=== PATIENT | male | born 1975 | race Caucasian/White ===

== ENCOUNTER → 2024-01-24 13:47 | Outpatient (REF) | payer BC, SELFPAY | LOC: DHCBC MAIN 13:47 | PROVIDERS: ATTENDING PHYSICIAN Internal Medicine Cardiovascular Disease; FAMILY PHYSICIAN Family Medicine | DX: R07.89 Other chest pain (principal); R03.0 Elevated blood-pressure reading, without diagnosis of hypertension | CPT/HCPCS: 93306 ==

== ENCOUNTER → 2024-05-29 10:44 | Outpatient (REF) | payer BC, SELFPAY | LOC: RAD 10:44 | PROVIDERS: ATTENDING PHYSICIAN Surgery; FAMILY PHYSICIAN Family Medicine | DX: N20.0 Calculus of kidney (principal) | CPT/HCPCS: 74018 ==

== ENCOUNTER 2025-06-29 19:47 | Emergency (ER) | payer BC, SELFPAY ==
[2025-06-29 19:58] VITALS: BP 158/95
[2025-06-29 20:18] VITALS: BMI 30.1
--- NOTE | 2025-06-29 20:40 | ED.MUSCINJ ---
HPI-Injury
General
Chief Complaint: Musculo-Skeletal Complaint
Source: patient and spouse
Exam Limitations: none
Time Seen by Provider: 06/29/25 20:40
Nursing documentation reviewed up to this point in time: agreed with
History of Present Illness-Injury
Initial Injury comments:
49-year-old male who comes from home after a left knee injury. He slipped on a wet floor and dislocated his patella 'it went sideways' and reduce it himself. He presents now with pain 10/10 in the knee with pain 'from my toe all the way up to my
hip.' Denies hitting head or any other injury
Past History
Past History
ED Past Medical History: Other (Kidney stones)
ED Past Surgical History: Other (Lipoma removal)
Social History
Tobacco: Non-smoker
Alcohol: Occasional
Drug: None
Personal:
Living: with family
Employment: Employed
Family History
Family History: Other (CHF)
Review of Systems
Review of Systems
Allergies reviewed?: Yes
All Other Systems: ROS reviewed and negative except as documented in HPI and ROS
Phy Exam
Physical Exam
Physical Exam:
GENERAL: No acute distress. A&Ox3.
CONSTITUTIONAL: Afebrile.
EYES: clear, conjunctivae normal
ENMT: moist mucus membranes, Pharynx nl
RESPIRATORY: Regular respirations, nonlabored, lungs clear.
CARDIOVASCULAR: Regular rate and rhythm, no murmurs, no rubs.
GI: Soft, nontender, normal BS
MUSCULOSKELETAL: Left lower extremity: Tender to palpate about the left knee, mild swelling, distal neurovascular intact. Will reevaluate after pain medication. Moves with ease. Well perfused.
SKIN: Warm, dry, pink
PSYCH: Normal mood and affect. Well kept, interactive and appropriate
NEUROLOGIC: Awake, alert and oriented. No focal neurological deficits
Injury Course
Orders/Labs/Results
Orders:
Orders
06/29/25 20:17
CR Knee - Left 4 Or More View* Urgent
Comment:
Reason For Exam: pain/fall
06/29/25 20:46
Knee Immobilizer Left-Treatmen ONCE
Ibuprofen [Motrin] 600 mg PO NOW STA
Oxycodone/Acetaminophen [Percocet 5/325] 1 tablet PO NOW STA
MDM/Problems Addressed
MDM/Problems Addressed:
49-year-old male who comes from home after a left knee injury. He slipped on a wet floor and dislocated his patella 'it went sideways' and reduce it himself. He presents now with pain 10/10 in the knee with pain 'from my toe all the way up to my
hip.' Denies hitting head or any other injury
Knee xray: Initally read by this examiner: mild suprapatellar effusion, otherwise neg.
*Pulse Oximetry
SaO2: 99
Oxygen Mode of Delivery: Room air
Patient hypoxic: not evaluated
*Critical Care Note
Total Time (30-74mins, 75-104mins- exclusive of procedures): Not Applicable
ED Attending Note
-
Portions of this chart may have been created with voice recognition software.� Occasional wrong word or��sound alike� substitutions may have occurred due to the inherent limitations of voice recognition software.
Discharge Plan
Departure
Patient Disposition: Home (Routine Discharge)
Date of Disposition: 06/29/25
Time of Disposition: 21:45
Patient with high blood pressure during this ER visit?: No
Condition: Good
Discharge Problem:
Fall from slip, trip, or stumble, Closed patellar dislocation, Groin strain
Instructions: Groin Strain (DC), Dislocated Kneecap (DC), Using Cold for Pain
Prescriptions:
New
tramadol 50 mg tablet
50 mg PO Q8H PRN (Reason: Pain) Qty: 6 0RF
No Action
betamethasone dipropionate 15 GM cream
15 gm TP TID Qty: 15 1RF
tramadol [Ultram] 50 MG tablet
50 mg PO Q4HPRN PRN (Reason: pain) Qty: 10 0RF
oxycodone-acetaminophen [Percocet] 5-325 mg Tablet
1 tab PO Q6HPRN PRN (Reason: pain) Qty: 12 0RF
tamsulosin [Flomax] 0.4 mg Capsule
0.4 mg PO DAILY Qty: 7 0RF
ondansetron 4 mg Tablet,Disintegrating
4 mg PO TIDPRN PRN (Reason: nausea/vomiting) Qty: 12 0RF
Referrals:
Teresita Mendez I., DO [Active, Orthopedics] - Call in 1-3 days for appt
UNKNOWN - PT DOES,NOT KNOW [Family Provider]
Activity Restrictions/Additional Instructions:
As we discussed, use the crutches with gradually increasing weightbearing as comfort permits.
Wear the knee immobilizer at all times when up and around.
Ibuprofen 600 mg, with food, every 6 hours as needed for pain.
Apply cold compress to the area 20 minutes off and on for the next 2 days is much as you can.
Interventions
Interventions:
*Risk Screen - Suicide Last Done: 06/29/25 19:58
*General Assessment Last Done: 06/29/25 20:18
*Neglect/Abuse Screening Last Done: 06/29/25 21:35
*ED- Fall Risk Assessment Last Done: 06/29/25 20:18
*ED COVID-19 Vaccine History Last Done: 06/29/25 20:18
*Nursing Disposition Last Done: 06/29/25 21:52
ED-Musculoskeletal Assessment Last Done: 06/29/25 20:20
Discharge Date and Time
Discharge Date/Time: 06/29/25 21:55
Print Language: BULGARIAN
[2025-06-29] MEDS: MOTRIN 600 MG PO (20:49)
[2025-06-29] MEDS: PERCOCET 5/325 1 TABLET PO (20:49)
[2025-06-29 21:52] VITALS: BP 150/90
== END 2025-06-29 21:55 | disposition home or self-care (01) ==
LOC: EMR 19:47
PROVIDERS: EMERGENCY PHYSICIAN Emergency Medicine
DX: S83.006A Unspecified dislocation of unspecified patella, initial encounter (principal); S39.011A Strain of muscle, fascia and tendon of abdomen, initial encounter; W01.0XXA Fall on same level from slipping, tripping and stumbling without subsequent striking against object, initial encounter; Z82.49 Family history of ischemic heart disease and other diseases of the circulatory system; Z87.442 Personal history of urinary calculi
CPT/HCPCS: 99283; 73564

== ENCOUNTER → 2025-07-10 18:08 | Outpatient (REF) | payer BC, SELFPAY | LOC: MRI 18:08 | PROVIDERS: ATTENDING PHYSICIAN Orthopaedic Surgery; FAMILY PHYSICIAN Family Medicine | DX: S89.92XA Unspecified injury of left lower leg, initial encounter (principal) | CPT/HCPCS: 73723; A9575 ==

== ENCOUNTER 2025-09-20 20:13 | Emergency (ER) | payer BC, SELFPAY ==
[2025-09-20 20:14] VITALS: BP 192/113
--- NOTE | 2025-09-20 20:36 | ED.GENMED ---
History of Present Illness
General
Chief Complaint: Dental Problem
Source: patient
Exam Limitations: none
Time Seen by Provider: 09/20/25 20:27
Nursing documentation reviewed up to this point in time: agreed with
History of Present Illness
History of Present Illness:
see MDM
Past History
Past History
ED Past Medical History: Other (Kidney stones)
ED Past Surgical History: Other (Lipoma removal)
Social History
Tobacco: Non-smoker
Alcohol: Occasional
Drug: None
Personal:
Living: with family
Employment: Employed
Family History
Family History: Other (CHF)
Phy Exam
Physical Exam
Physical Exam:
See MDM
Course
Orders/Labs/Results
Orders:
Orders
09/20/25 20:34
Ibuprofen [Motrin] 600 mg PO NOW STA
Oxycodone/Acetaminophen [Percocet 5/325] 1 tablet PO NOW STA
09/20/25 20:37
Oxycodone/Acetaminophen [Percocet 5/325] 2 tablet PO NOW STA
09/20/25 20:39
Penicillin V Potassium [Pen Vk] 500 mg PO NOW STA
Vital Signs
Initial and Last Documented VS:
Initial Vital Signs
Temp Pulse Resp BP Pulse Ox
37.0 C 61 20 192/113 97
09/20/25 20:14 09/20/25 20:14 09/20/25 20:14 09/20/25 20:14 09/20/25 20:14
Last Documented Vital Signs
Temp Pulse Resp BP Pulse Ox
37.0 C 61 20 177/106 97
09/20/25 20:14 09/20/25 20:14 09/20/25 20:14 09/20/25 20:49 09/20/25 20:36
MDM/Problems Addressed
Differential Diagnosis Includes:
see MDM
MDM/Problems Addressed:
Note:
CHIEF COMPLAINT(S)
Pain and swelling in the jaw due to dental impaction and abscess
HISTORY OF PRESENT ILLNESS
The patient is a 49 y/o M who presents with significant jaw pain secondary to a dental issue. The symptoms started a few days ago following a recent visit to the dentist, for impacted R lower jaw wisdom tooth. The dentist has not yet referred her to
an oral surgeon. Initially, the pain was mild, and pt says there was a visible pocket of pus that the patient self-expressed. Over the last three days, the pain has intensified, described by the patient as a pounding sensation that necessitated
stopping her vehicle while driving because the pain was severe enough to impair concentration. The pain worsens with chewing. The patient did not receive antibiotics from the dentist and self-administered naproxen earlier today, which provided some
relief but is currently inadequate.
pt has not had facial swelling, trismus, fever, redness.
he has h/o borderline htn but doesn't take meds
SOCIAL HISTORY
The patient denies alcohol use but reports regular consumption of coffee.
PHYSICAL EXAM
GENERAL: Alert , in no apparent distress
NECK: Supple
ENT: No facial swelling
No trismus
Right lower jaw no swelling, no periapical abscess, no visibility of the impacted wisdom tooth, there is no tenderness to percussion
No jaw tenderness, no submandibular lymphadenopathy
No parotid gland swelling
SKIN: Warm and dry, skin intact.
PSYCH: Normal and appropriate interaction.
Nursing notes reviewed and vital signs reviewed.
PROBLEM LIST
Acute:
- Dental impaction with abscess
- Acute dental-related jaw pain
PLAN
- Prescribe antibiotic therapy to address bacterial infection potentially present in the abscess.
- Prescribe analgesics, including acetaminophen, to manage pain.
- Arrange a follow-up with a dental surgeon for surgical evaluation of the impaction.
DIFFERENTIAL DIAGNOSIS
The Differential Diagnosis includes, in no particular order and is not limited to:
- Dental abscess
- Pericoronitis
- Dental impaction
- Osteomyelitis of the jaw
- Temporomandibular joint dysfunction
- Odontogenic infection
- Sinusitis
- Gingivitis or periodontitis
- Trigeminal neuralgia
- Fractured or impacted tooth beyond visible impression
49-year-old male with history of borderline hypertension not on meds presents for acute pain in his right lower jaw due to a likely known impacted wisdom tooth. Patient had an x-ray recently and was referred to oral surgery. He had pain this
evening which is not controlled currently. He has not taken anything recently but took naproxen this morning. He has no trismus, facial swelling, drainage. Patient describes that he self expressed some drainage from his gums a few days ago.
Will cover with antibiotics, initially wrote for penicillin but changed it to Augmentin. Pain control, follow-up dental BP elevated, likely due to pain
, Patient does have some borderline hypertension needs follow-up outpatient
*Pulse Oximetry
SaO2: 97
Oxygen Mode of Delivery: Room air
Patient hypoxic: no (97)
*Critical Care Note
Total Time (30-74mins, 75-104mins- exclusive of procedures): Not Applicable
ED Attending Note
-
Portions of this chart may have been created with voice recognition software.� Occasional wrong word or��sound alike� substitutions may have occurred due to the inherent limitations of voice recognition software.
Discharge Plan
Departure
Patient Disposition: Home (Routine Discharge)
Date of Disposition: 09/20/25
Time of Disposition: 20:37
Patient with high blood pressure during this ER visit?: Yes
Condition: Fair
Covid-19: Not Applicable
Discharge Problem:
Odontalgia
Instructions: Dental Pain (DC), BLOOD PRESSURE
Prescriptions:
New
oxycodone 5 mg tablet
5 mg PO Q8H PRN (Reason: Pain) Qty: 7 0RF
penicillin V potassium 500 mg tablet
500 mg PO TID Qty: 21 0RF
amoxicillin-pot clavulanate 875-125 mg tablet
1 tab PO BID Qty: 14 0RF
No Action
betamethasone dipropionate 15 GM cream
15 gm TP TID Qty: 15 1RF
tramadol [Ultram] 50 MG tablet
50 mg PO Q4HPRN PRN (Reason: pain) Qty: 10 0RF
oxycodone-acetaminophen [Percocet] 5-325 mg Tablet
1 tab PO Q6HPRN PRN (Reason: pain) Qty: 12 0RF
tamsulosin [Flomax] 0.4 mg Capsule
0.4 mg PO DAILY Qty: 7 0RF
ondansetron 4 mg Tablet,Disintegrating
4 mg PO TIDPRN PRN (Reason: nausea/vomiting) Qty: 12 0RF
tramadol 50 mg tablet
50 mg PO Q8H PRN (Reason: Pain) Qty: 6 0RF
Referrals:
Jacinto Jolley DO [Family Provider, Family Practice]
Activity Restrictions/Additional Instructions:
Take penicillin 3 times a day for 7 days. Warm water start gargles after eating.
Avoid extra hot or cold liquids
Take ibuprofen 600 mg 3 times a day with food for 3 to 5 days or you can take naproxen twice a day
Take Tylenol 3 times a day
if the pain is more severe you could use oxycodone 5 mg every 8 hours as needed
Follow-up with your oral surgeon
Return for any concerns like facial swelling, redness, fever, inability to open your jaw or any concern
Interventions
Interventions:
*Risk Screen - Suicide Last Done: 09/20/25 20:14
*General Assessment Last Done: 09/20/25 20:14
*Neglect/Abuse Screening Last Done: 09/20/25 20:14
*Nursing Disposition Last Done: 09/20/25 20:49
Discharge Date and Time
Discharge Date/Time: 09/20/25 20:50
Print Language: [place]
[2025-09-20] MEDS: PERCOCET 5/325 2 TABLET PO (20:41)
[2025-09-20] MEDS: MOTRIN 600 MG PO (20:41)
[2025-09-20] MEDS: PEN VK 500 MG PO (20:46)
[2025-09-20 20:49] VITALS: BP 177/106
== END 2025-09-20 20:50 | disposition home or self-care (01) ==
LOC: EMR 20:13
PROVIDERS: EMERGENCY PHYSICIAN Emergency Medicine; FAMILY PHYSICIAN Family Medicine
DX: K01.1 Impacted teeth (principal); L02.91 Cutaneous abscess, unspecified
CPT/HCPCS: 99283